=== PATIENT | male | born 1965 | race Caucasian/White ===

== ENCOUNTER 2017-03-29 15:12 | Inpatient (IN) | payer OTHER ==
[~2017-03-29] VITALS: Ht 185.4 cm; Wt 70.9 kg
[~2017-03-29 15:12] MED LIST: ALBUTEROL0.09 MG/A1 INH; CLONAZEPAM1 M2 PO; COMMIT; METHADONE10 MG/1 M2 PO; MIRTAZAPINE15 MG PO; NEURONTIN600 M1 PO; QUETIAPINE FUM300 MG PO; SEROQUEL200 M1 PO; SPIRIVA 18 MCG18 MCG INH; [UNRECOGNIZED DRUG - OTHER]
--- NOTE | 2017-03-29 15:42 | NUR ---
PT STATES JUST GOT OUT OF [facility] FOR +SI AND STATES HE FEELS WORSE. PT STATES HE DOES HAVE A PLAN TO HURT HIMSELF STATES USUALY PILLS. PT STATES HE TOOK SOME XANAX 10 12MG PILLS AND SOME SEREQUEL 10 200MG AND GABAPENTIN 8 300MG PILLS. AND HE IS STARTING TO FEEL VERY DROWSEY. PT DENIES HI AT THIS TIME. PT STATES HE TAKES METHADONE, STATES HE DOES DRINK ETOH BUT THIS IS NOT A PROBLEM FOR HIM. PT ALSO ADMITS TO USING COCAINE NOW.
--- NOTE | 2017-03-29 15:46 | NUR ---
TO ROOM 12. PT ENCOURAGED TO CHANGE. PT AWARE OF NEEDING A URINE SPEC.
[2017-03-29 15:47] LABS: ABSOLUTE BASOPHIL COUNT 0.1 /CUMM (0.0-0.2); ABSOLUTE EOSINOPHIL COUNT 0.1 /CUMM (0.0-0.7); ABSOLUTE GRANULOCYTE CT 3.4 /CUMM (1.4-6.5); ABSOLUTE LYMPH COUNT 2.5 /CUMM (1.2-3.4); ABSOLUTE MONOCYTE COUNT 0.9 /CUMM (0.10-0.60); BASOPHIL % 0.8 % (0.0-2.0); EOSINOPHIL % 1.1 % (0-5); HEMATOCRIT 40.2 % (42-52); MEAN CORPUSCULAR HGB 31.2 PG (27.0-31.0); MEAN CORPUSCULAR HGB CONC 33.3 G/DL (33.0-37.0); MEAN CORPUSCULAR VOLUME 93.6 FL (80.0-94.0); MEAN PLATELET VOLUME 7.6 FL (7.4-10.4); PLATELET COUNT 251 /CUMM (130-400); RBC DISTRIBUTION WIDTH 14.6 % (11.5-14.5); WHITE BLOOD CELL COUNT 6.9 /CUMM (4.8-10.8)
--- NOTE | 2017-03-29 15:49 | ED GENERAL ADULT ---
See Addendum History of Present Illness General Chief Complaint: Psychiatric Related Complaint Stated Complaint: POSITIVE SI Source: patient Exam Limitations: no limitations Vital Signs & Intake/Output Vital Signs & Intake/Output Vital Signs Date Time Temp Pulse Resp B/P B/P Pulse O2 O2 Flow FiO2 Mean Ox Delivery Rate 04/01 0811 97.9 72 22 102/59 96 04/01 0552 97.9 66 16 111/59 96 Room Air 04/01 0133 98.2 59 16 113/57 95 Room Air 03/31 2240 98.4 80 16 108/64 95 Room Air 03/31 1916 98.0 80 16 100/60 94 Room Air 03/31 1634 98.0 60 16 100/64 94 Room Air Allergies Coded Allergies: benztropine (Intermediate, DELUSIONS 10/19/16) escitalopram (Intermediate, DELUSIONS 10/19/16) fluoxetine (Intermediate, DELUSIONS 10/19/16) haloperidol (Intermediate, DELUSIONS 10/19/16) chlorpromazine (Severe, MAKES ME CUT MYSELF 10/19/16) Reconcile Medications Amoxicillin/Clavulanate Potass (Amox-Clav 875-125 MG Tablet) 875 MG-125 MG TABLET 1 TAB PO BID ANTIBIOTIC (Reported) Gabapentin 300 MG CAPSULE 2 CAP PO TID UNKNOWN (Reported) Lactose-Reduced Food (Ensure Liquid) 237 ML LIQUID 237 ML PO TID SUPPLEMENT ( Reported) Quetiapine Fumarate 200 MG TABLET 1 TAB PO AD MENTAL HEALTH (Reported) Tamsulosin HCl 0.4 MG CAP.ER.24H 1 CAP PO DAILY (Reported) Tiotropium [place] (Spiriva) 18 MCG CAP.W.DEV 1 CAP INH DAILY RESPIRATORY ( Reported) Triage Note: PT STATES JUST GOT OUT OF [facility] FOR +SI AND STATES HE FEELS WORSE. PT STATES HE DOES HAVE A PLAN TO HURT HIMSELF STATES USUALY PILLS. PT STATES HE TOOK SOME XANAX 10 12MG PILLS AND SOME SEREQUEL 10 200MG AND GABAPENTIN 8 300MG PILLS. AND HE IS STARTING TO FEEL VERY DROWSEY. PT DENIES HI AT THIS TIME. PT STATES HE TAKES METHADONE, STATES HE DOES DRINK ETOH BUT THIS IS NOT A PROBLEM FOR HIM. PT ALSO ADMITS TO USING COCAINE NOW. Triage Nurses Notes Reviewed? yes Onset: Abrupt Duration: week(s): Timing: recent history HPI: 03/29/17 4 PM 51-year-old male presents to the emergency department complaining of depression with suicidal ideation. The patient states that he's been depressed for some time. He's had thoughts of killing himself including jumping off a roof or taking pills. He says that approximately 1-1/2 hours prior to admission he took 6 Xanax 2 mg tablets and a handful of 200 mg Seroquel tablets and a handful of 300 mg gabapentin. He denies vomiting or ingestion of other medications. He says he does occasionally drink. He denies drugs. He is on methadone 110 mg daily. He took his dose today. He says he also has a history of hepatitis C. He also uses cocaine. He denied chest pain or difficulty breathing. (NIRU MUNSON DO) Past History Travel History Traveled to [place] past 21 day No Medical History Any Pertinent Medical History? see below for history Neurological: seizure EENT: NONE Cardiovascular: HEART PROBLEMS ?/FILEMON Respiratory: asthma Gastrointestinal: NONE Hepatic: HEPAC? 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 No (NIRU MUNSON DO) Review of Systems Review of Systems Constitutional: Denies: fever. EENTM: Reports: no symptoms. Respiratory: Denies: short of breath. Cardiovascular: Denies: chest pain. GI: Denies: abdominal pain. Genitourinary: Reports: no symptoms. Musculoskeletal: Reports: no symptoms. Skin: Reports: no symptoms. Neurological/Psychological: Reports: depressed. Hematologic/Endocrine: Reports: no symptoms. Immunologic/Allergic: Reports: no symptoms. (NIRU MUNSON DO) Physical Exam Physical Exam General Appearance: alert, awake, anxious, moderate distress Head: atraumatic, normal appearance Eyes: Bilateral: normal appearance, PERRL, EOMI. Ears, Nose, Throat: normal pharynx, normal ENT inspection Neck: normal inspection, supple, full range of motion Respiratory: normal breath sounds, chest non-tender, no respiratory distress Cardiovascular: regular rate/rhythm Peripheral Pulses: 4+ radial (R), 4+ radial (L) Gastrointestinal: soft, non-tender Back: normal range of motion Extremities: normal inspection, normal range of motion, no edema Neurologic/Psych: awake, alert, oriented x 3 Skin: intact, normal color, warm/dry Core Measures ACS in differential dx? No CVA/TIA Diagnosis: No Severe Sepsis Present: No Septic Shock Present: No (NIRU MUNSON DO) Progress Differential Diagnoses I considered the following diagnoses in my evaluation of the patient: [DRUG OVERDOSE, DEPRESSION, SUBSTANCE ABUSE] Plan of Care: Orders Procedure Date/time Status Admit to inpatient psych 04/01 1220 Active Current Medications Sig/Andrew Start time Last Medication Dose Stop Time Status Admin Clonazepam 1 MG TID 03/31 1600 UNVr 03/31 (Klonopin 1MG Tab) 04/07 1559 210 Nicotine 2 MG Q2P PRN 03/31 1000 AC 03/31 (Nicotine) 2003 Quetiapine Fumarate 200 MG TID 03/30 1600 UNVr 03/31 (Seroquel) 210 Gabapentin 600 MG Q8 03/30 1456 UNVr 04/01 (Neurontin) 0619 7:15 AM PATIENT SIGNED OUT TO ME BY DR ECHEVARRIA. PENDING CRISIS DISPO. (VIC REILLY,MARLYN) Initial ED EKG: NSR, nonspecific ST T wave chg, BORDERLINE Q-T PROLONGATION (NIRU MUNSON DO) Differential Diagnoses I considered the following diagnoses in my evaluation of the patient: Hand-Off Endorsed To: ANIKA HOWARD MD Endorsed Time: 07 Pending: consult (CANDACE REILLY,ESTELA Akbar) Hand-Off Endorsed To: NIRU MILLER MD Endorsed Time: 190 Pending: consult Comments: Patient has been seen and evaluated by sound ranging crewmember. A PEC has been signed. Bed search is underway. (ANIKA HOWARD MD) Comments: 03/31/2017 6:55:54 AM patient signed out to Dr. Howard at shift drying rack changer. (NIRU MILLER MD) Departure Departure Disposition: STILL A PATIENT Condition: Stable Clinical Impression Primary Impression: Drug overdose Referrals: PATIENT HAS NO PRIMARY CARE DR (PCP/Family) Departure Forms: Customer Survey General Discharge Information Comments The patient was placed on a monitor. Poison control consulted. IV fluids were given. Crisis consultation was requested Patient's labs were essentially unremarkable other than elevated cocaine level, elevated benzo level. He will be evaluated by crisis in the a.m. The patient was signed out to Dr. Echevarria at 1 AM (NIRU MUNSON DO) Departure Time of Disposition: 1220 Psych Admission Note Psychiatric Admission: I have seen and evaluated VIC TRAN. I have also reviewed all the pertinent lab results and diagnostic results. VIC TRAN will be admitted to our inpatient Psychiatric unit for treatment and care. (VIC REILLY,MARLYN) Critical Care Note Critical Care Note Critical Care Time: 30-74 min (NIRU MUNSON DO) Departure Forms: Customer Survey General Discharge Information Comments The patient was placed on a monitor. Poison control consulted. IV fluids were given. Crisis consultation was requested Patient's labs were essentially unremarkable other than elevated cocaine level, elevated benzo level. He will be evaluated by crisis in the a.m. The patient was signed out to Dr. Echevarria at 1 AM (NIRU MUNSON DO) Critical Care Note Critical Care Note Critical Care Time: 30-74 min (NIRU MUNSON DO)
--- NOTE | 2017-03-29 15:50 | NUR ---
DR. MUNSON AT BEDSIDE.
--- NOTE | 2017-03-29 16:25 | NUR ---
FINGERFOOD TRAY ORDERED WITH [employer].
[2017-03-29] MEDS ORDERED: SPIRIVA18 MCG INH (16:45)
[2017-03-29] MEDS ORDERED: ENSURE LIQUID237 ML PO (16:45)
[2017-03-29] MEDS ORDERED: TAMSULOSIN HCL0.4 M1 PO (16:45)
[2017-03-29] MEDS ORDERED: AMOX-CLAV 875-1 EACH PO (16:45)
[2017-03-29] MEDS ORDERED: GABAPENTIN300 M2 PO (16:46)
[2017-03-29] MEDS ORDERED: QUETIAPINE FUM200 M1 PO (16:46)
--- NOTE | 2017-03-29 16:56 | NUR ---
PT SEMI UNCOOPERATIVE, REPORTS HE IS BUSY WATCHING TV AND EATING HIS DINNER TO PROVIDE URINE. PT CONFUSING WITH SITTER. AWARE OF THE NECESSITY OF URINE.
--- NOTE | 2017-03-29 20:00 | NUR ---
PT INTERMITTANTLY SLEEPING BUT AWAKENS TO GENTLE STERNAL RUB AND/OR VOICE LOUDER THAN NORM. SITTER IN PLACE.
--- NOTE | 2017-03-29 20:14 | ED PSY CRISIS COLLATERAL NOTE ---
Collateral Note Collateral Note Family/Inform/James Contacts: Crisis consult was received, however per the notes the patient took an overdose of medications and his toxicology screen is positive for PCP, Methadone, Benzodiazepines and Cocaine. He presents as lethargic and not appropriate for interview at this time. UTE spoke to MALIA Smith and she also believes that he is not appropriate for interview this evening. SW will follow up tomorrow AM. UTE spoke to the patients sister, Joselin Blandon ([phone]), for collateral information. Joselin notes that the patient has been struggling with mental health and substance abuse issues since he was 18 years old. She states that he has had multiple treatment episodes, with the last one being at [facility], in which he was discharged 2 days ago. She states that she has been involved in multiple family sessions over the years and that he generally does well, while he is inpatient and then struggles upon discharge. She states that he has poor coping skills and can not handle stressors in his life. She notes that they did lose multiple family members in 2015, including their mother, aunt, uncle and grandmother and she does not believe, that the patient has dealt with their deaths. She believes that the patient's Methadone Maintenance is helpful and that he needs to remain on it. She states that he has been more depressed and suicidal lately. She is very concerned for his safety and does find him to be a risk to himself. She would like to be kept informed about the plan of care and will also call Crisis tomorrow to check in.
--- NOTE | 2017-03-29 23:53 | NUR ---
PATIENT CONTINUES TO SLEEP AT THIS TIME W/ REGULAR RESPIRATIONS NOTED. REMAINS IN VIEW OF RN STATION.
--- NOTE | 2017-03-30 01:45 | NUR ---
PATIENT CONTINUES TO SLEEP AT THIS TIME W/ REGULAR RESPIRATIONS NOTED. REMAINS IN SITE OF NURSES STATION.
--- NOTE | 2017-03-30 02:54 | NUR ---
PATIENT CONTINUES TO SLEEP AT THIS TIME W/ REGULAR RESPIRATIONS NOTED.
--- NOTE | 2017-03-30 04:02 | NUR ---
PATIENT TURNING/ REPOSITIONING SELF ON STRETCHER AT THIS TIME, PATIENT REMAINS W/ REGULAR RESPIRATIONS.
--- NOTE | 2017-03-30 06:31 | NUR ---
PATIENT CONTINUES TO SLEEP AT THIS TIME W/ REGULAR RESPIRATIONS NOTED. REMAINS IN LINE OF SITE OF NURSES STATION. POISION CONTROL UPDATED ON PATIENT CONDITION.
--- NOTE | 2017-03-30 07:30 | NUR ---
PATIENT SLEEPING AT THIS TIME. EVEN, NONLABORED RESP RATE NOTED. WILL CONTINUE TO MONITOR.
--- NOTE | 2017-03-30 08:18 | NUR ---
CRISIS AT BEDSIDE FOR EVAL.
--- NOTE | 2017-03-30 08:59 | ED PSYCH CRISIS CONSULTATION ---
See Addendum Crisis Consult Basic Assessment Date of Consult: 03/30/17 Responsible Person/Accompanied By: self Insurance Authorization: Insurance #1: Insurance name: VIVIAN KELLY Phone number: Policy number: [id number] Group number: Authorization number: ED Provider: Patient's ED Provider: NIRU MUNSON DO Primary Care Physician: Patient's PCP: PATIENT HAS NO PRIMARY CARE DR PCP's Phone Number: Current Psychiatrist: [facility] Chief Complaint: Psychiatric Related Complaint Patient's Quote: "I've been in a coma so many times butmy suicide attempts don't work." Present Illness: Pt. was interviewed in the morning by extract wringer after spending the night in the ED after taking "5-6 2 mg Klonopin, no Xanax and 'some seroquel'" in a suicide attempt. Pt. was extremely irritable and barely coherent, speaking to clinician from under a blanket at first but removing the blanket when asked to do so. Pt. stated that "it was obvious" that he was here for suicidal ideation and that he had "been feeling depressed and suicidal for weeks". When asked about his recent discharge from the hospital referenced in the collateral note, he acknowledged that he had been in the hospital but could not say which one "[facility] or [facility] or something" and he reported he "thought he felt better" but that he became depressed as soon as he was released. He stated that he was advised to come to the hospital by "[facility]" where he said he went for weekly therapy and case management with a licensed clinical social worker. Pt. reported a long history of mental health issues since 1988 and multiple hospitalizations including [facility], [facility] and [facility]. Pt. reported currently being "in treatment" at [facility] and the [facility] for methadone maintenance ( 110 mg). He was not able to elaborate on where he was living or family supports. He acknowledged that he was actively substance using but when asked what he "used" he reported the pills he took for overdose, and when this clinician asked him if he had used the Klonopin to get high, he replied in disgust that it was a suicide attempt and that "you can't get high on seroquel". Client was disorganized and irritable. Patient's Address: [address] [place] [id number] Other Phone Number: Who Do You Live With? Patient/Self Family/Informants Interviewed: See collateral note Allergies - Coded Allergies: benztropine (Intermediate, DELUSIONS 10/19/16) escitalopram (Intermediate, DELUSIONS 10/19/16) fluoxetine (Intermediate, DELUSIONS 10/19/16) haloperidol (Intermediate, DELUSIONS 10/19/16) chlorpromazine (Severe, MAKES ME CUT MYSELF 10/19/16) Current Medications - Scheduled Medications Amoxicillin/Clavulanate Potass (Amox-Clav 875-125 MG Tablet) 875 MG-125 MG TABLET 1 TAB PO BID ANTIBIOTIC #20 (Reported) Entered as Reported by PREETI SEGURA on 03/29/17 164 Gabapentin 300 MG CAPSULE 2 CAP PO TID UNKNOWN #180 (Reported) Entered as Reported by PREETI SEGURA on 03/29/171645 Lactose-Reduced Food (Ensure Liquid) 237 ML LIQUID 237 ML PO TID SUPPLEMENT # 22891 (Reported) Entered as Reported by PREETI SEGURA on 03/29/17 164 Quetiapine Fumarate 200 MG TABLET 1 TAB PO AD MENTAL HEALTH #120 (Reported) Entered as Reported by PREETI SEGURA on 03/29/17 164 Tamsulosin HCl 0.4 MG CAP.ER.24H 1 CAP PO DAILY #30 (Reported) Entered as Reported by PREETI SEGURA on 03/29/17 164 Tiotropium [place] (Spiriva) 18 MCG CAP.W.DEV 1 CAP INH DAILY RESPIRATORY #30 (Reported) Entered as Reported by PREETI SEGURA on 03/29/17 1645 Laboratory Results: Laboratory Tests 03/29/17 1715: Urine Opiates Screen < 100.00, Methadone Screen > 735 H, Barbiturate Screen < 60, Ur Phencyclidine Scrn > 72.00 H, Amphetamines Screen 112, U Benzodiazepines Scrn > 800 H, Urine Cocaine Screen > 1000 H, Urine Cannabis Screen < 5.00 03/29/17 1556: Salicylates Cancelled 03/29/17 1533: Anion Gap 10, Estimated GFR > 60, BUN/Creatinine Ratio 24.0, Glucose 103 H, Calcium 9.1, Total Bilirubin 0.9, AST 39, ALT 56, Alkaline Phosphatase 63, Total Protein 7.3, Albumin 4.3, Globulin 3.0, Albumin/Globulin Ratio 1.4, CBC w Diff NO MAN DIFF REQ, RBC 4.30 L, MCV 93.6, MCH 31.2 H, RDW 14.6 H, MPV 7.6, Gran % 49.0, Lymphocytes % 36.3, Monocytes % 12.8 H, Eosinophils % 1.1, Basophils % 0.8, Absolute Granulocytes 3.4, Absolute Lymphocytes 2.5, Absolute Monocytes 0.9 H, Absolute Eosinophils 0.1, Absolute Basophils 0.1, PUBS MCHC 33.3, Salicylates < 1.0, Acetaminophen < 10.0 L, Serum Alcohol < 10.0 Past History Past Medical History Neurological: seizure EENT: NONE Cardiovascular: HEART PROBLEMS ?/FILEMON Respiratory: asthma Gastrointestinal: NONE Hepatic: HEPAC? 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 Physical Limitations (Interventions): None noted Psychiatric Treatment History Psych Treatment Psychiatric Treatment Yes Inpatient Treatment Yes [facility] Reason for Treatment mental health and substance abuse Dates of Treatment "since 1988" Diagnosis by History: "Bipolar Manic" Substance Use/Abuse History Drug Use/Abuse Substances Used/Abused Yes Substance Used/Abused Benzodiazepines First Use unknown Last Used yesterday How much used/taken 5-6 klonpin 2 mg How often unknown For how long unknown Substance Abuse Treatment Substance Abuse Treatment Past Substance Abuse TX Yes Inpatient Treatment Yes Outpatient Treatment Yes Location of Treatment unknown Reason for Treatment heavy substance abuse Dates of Treatment unknown Current Mental Status Mental Status Orientation: Confused, Person, Place Affect: Angry, Depressed, Flat Speech: Mumbled, Slurred, Soft Neuro-vegetative: Anhedonia, Concentration Poor, Loss of Interest Appearance Appearance- Dress/Hygiene: very thin and gaunt, in hospital gown, covered from head to foot in blanket, removed blanket from face in order to speak with SW Behaviors Thought Process: Disorganized Memory: WNL Insight: Poor SI/HI Risk Assessment Past Suicidal Ideation/Attempts Yes Current Suicidal Ideation/Att Yes Past Homicidal Ideation/Att: No Current Homicidal Ideation/Attempts No Degree of Intent: Self Destructive/No , States Intent Danger To: Self Gravely Disabled: Lack of Insight, Poor Impulse Control, Poor Judgment Risk Factors: access to lethal means, chronic/serious med cond., high anxiety/ distress, history of suicide atmpts, SA/MH hospitalized, substance abuse, isolate/no social support, poor impulse control, lack of outcome concern, male, limited support Lethality Ratin PTSD Checklist PTSD Done? pt unable to participate ED Management Sitter: Yes Restraints: No DSM5/PS Stressors/Medical Prob Diagnosis' (DSM 5, Stressors, Medical): F31.4 Bipolar Disorder most recent episode depressed Current GAF: 25 Departure Disposition Psych Medical Clearance Date: 03/30/17 Medically Cleared at: 824 Time Started: 824 Time Ended: 844 Psychiatrist Consulted: Jose Enriquez MD Date Disposition Established: 03/30/17 Time Disposition Established: 899 Plan for Disposition - Modality: Inpatient Psychiatry Facility: bed search Rationale for Disposition: pt. is actively suicidal, with attempt yesterday Type of IP Admission: Voluntary Additional Instructions: PEC if transferring to another hospital Referrals PATIENT HAS NO PRIMARY CARE DR (PCP/Family)
--- NOTE | 2017-03-30 09:23 | NUR ---
DARREN RESTING ON STRETCHER IN HALLWAY.
--- NOTE | 2017-03-30 10:28 | NUR ---
SPOKE WITH POISON CONTROL AT THIS TIME - SYMPTOMS HAVE RESOLVED. ALL MEDICATIONS HAVE PEAKED AT THIS TIME (EVEN IF ANY OF THE MEDICATIONS HAVE BEEN EXTENDED RELEASE). * CIPRIANO FROM POISON CONTROL.
--- NOTE | 2017-03-30 11:09 | NUR ---
ASSUMED CARE OF PT
--- NOTE | 2017-03-30 11:20 | NUR ---
PT SEEN IN ROOM. EATING LUNCH. DENIES ANY CURRENT DISTRESS
--- NOTE | 2017-03-30 17:33 | NUR ---
PT RESTING COMFORTABLY
--- NOTE | 2017-03-30 20:54 | NUR ---
Crisis Clinicial assess pt at 20:00. Pt continues to endorse suicidal thoughts with plan. Pt states "I'm getting worst, feeling more depressed". Pt requesting medications Seroquel, Neurotin and Nicotin gum. Disposition plan discussed with pt. Informed that his referral was denied at the following hospitals, [facility], [facility], [facility] and [facility]. At this time pt is requesting to be hospitalized at [facility] and he is willing to wait until Saturday.
--- NOTE | 2017-03-31 | NUR ---
SLEEPING AT THIS TIEM SITTERA AT DOOR.
--- NOTE | 2017-03-31 07:09 | NUR ---
ASSUMED CARE OF PT AT THIS TIME MEDICATED WITH NEUROTIN PER ORDER AT THIS TIME PT RESTING ON STRETCHER, SITTER REMAINS PRESENT.
--- NOTE | 2017-03-31 07:16 | NUR ---
PT GIVEN NICOTINE GUM AT THIS TIME PER PRN ORDER
--- NOTE | 2017-03-31 08:27 | NUR ---
REQUESTING METHADONE AND MORE NICOTENE GUM.
--- NOTE | 2017-03-31 08:54 | NUR ---
PT MEDICATED WITH METHADONE PER ORDER AT THIS TIME
--- NOTE | 2017-03-31 10:06 | NUR ---
Pt reassessed by crisis . Pt reports mild decrease in SI but affirms that he needs inpatient treatment. he presents as irritable and restless. requesting nicotine gum order to be increased to every 2 hrs. Reviewed with pt that crisis continues to search for in inpatient psychiatric bed. Pt referral has been faxed this morning to [facility] and [facility].
--- NOTE | 2017-03-31 10:52 | NUR ---
PT TALKING ON PHONE AT THIS TIME SITTER REMAINS PRESENT
--- NOTE | 2017-03-31 11:20 | NUR ---
ASSUMED CARE OF THIS PT FROM MALIA PEREZ. PT REQUESTING TO RETREIVE NUMBERS OFF HIS CELL PHONE WHICH IS IN ER SAFE. THIS RN OBTAINED VALUABLES BAG, PROVIDED CELL PHONE AND PAPER/PEN TO PT AND RESEALED VALUABLES BAG AND RETURNED TO SAFE. SITTER AT DOOR. PT CALM AND COOPERATIVE.
--- NOTE | 2017-03-31 12:59 | NUR ---
PT REQUESTING NICOTINE GUM
--- NOTE | 2017-03-31 13:06 | NUR ---
PT PROVIDED WITH NICOTINE GUM 2MG. PT CALM AND COOPERATIVE, TALKATIVE. SITTER AT DOOR.
--- NOTE | 2017-03-31 14:50 | NUR ---
PT MEDICATED WITH GABAPENTIN 600MG PO AND NICOTINE GUM 2MG PO PT ASKING WHEN HE WOULD GET KLONOPIN. THIS RN ADVISED HIM THAT IT IS ORDERED FOR 4PM. PT CALM AND COOPERATIVE. SITTER AT DOOR.
--- NOTE | 2017-03-31 15:26 | ED PSYCHIATRIST/APRN CONSULT ---
Psychiatrist/[employer] TECHNOLOGY DEVELOPMENT MANAGER ED Consult Assessment and Plan: 51-year-old single White male who presented to ED the evening of 03/29/2017 for overdose on Klonopin, Xanax, and Seroquel. He reported that it was an attempt at suicide and that he has been having thoughts of suicide "for weeks." He was inpatient psych at [facility] in October 2016. History of inpatient psych treatments at [place], [facility], [facility] , and [facility] History of being diagnosed with Bipolar, Opiate use d/o on methadone. Cocaine use d/o. PTSD, unspecified. Alcohol Use Disorder Sedative Hypnotic Use Disorder History of withdrawal seizures Nicotine Use Disorder Over 30 suicide attempts (by his report) Medications: Discharged from [facility] on the following Medications: Methadone 80mg, take po every morning for opiate maintenance. Cymbalta 30mg caps, take 1 cap po every morning . Seroquel 200mg tabs, take 1 tab po at 8AM and at 2PM Seroquel 400mg tabs, take 1 tab po at bedtime Remeron 15mg tabs, take 1 tab po at bedtime Gabapentin 300mg caps, take 2 cap po three times a day. Spiriva inhaler 18mcg, take 1 puff inhalation every day for COPD. Flomax 0.4mg caps, take 1 tab po every morning for BPH/prostate. Daily Multivitamin, take 1 tab po every morning. Mental State: Interviewed in room 13 /Crisis Area Irritable, angry about the wait for a bed, angry TV is not working in his room Bored, restless, and agitated. In agreement with inpatient psych admission Increased psychomotor activity, talkative No delusions, no thought disorder Depressed, hopeless and thinking of suicide Thinking of punching wall, the patient in the next room is aggravating him, he denied plans to assault anyone Assessment: An angry 51-year-old White male awaiting a bed in an inpatient psych unit due to a reported suicide attempt by overdose and ongoing thoughts of suicide, agitation, and anger. Extensive psych history with--reportedly--over 30 suicide attempts. Extensive substance abuse history. Recommendations: Resume medications above Add Klonopin 1 mg every 6 hours as needed for anxiety, agitation, withdrawal Continue bed search for inpatient psych
--- NOTE | 2017-03-31 15:26 | NUR ---
PT MEDICATED WITH KLONOPIN 1MG AND SEROQUEL 200MG PO PER EMAR. PT CALM AND COOPERATIVE SITTING ON BED IN ROOM 13. SITTER AT DOOR.
--- NOTE | 2017-03-31 16:38 | NUR ---
PT LYING ON BED IN ROOM 13 CALM AND COOPERATIVE. PT REQUESTING NICOTINE GUM. PT AMBULATORY TO RESTROOM WITH STEADY GAIT.
--- NOTE | 2017-03-31 16:48 | NUR ---
PT GIVEN NICOTINE GUM 2MG. PT REMAINS CALM AND COOPERATIVE. SITTER AT DOOR.
--- NOTE | 2017-03-31 18:06 | NUR ---
PT RESTING ON BED IN ROOM 13. PT CALM AND COOPERATIVE. SITTER AT DOOR.
--- NOTE | 2017-03-31 19:10 | NUR ---
CRISIS AT BEDSIDE. PT STATES HE WANTS TO GO HOME IN THE MORNING. PT STSTES HE IS NO LONGER SUICIDAL. PT REPORTING ANXIETY DUE TO NO TELEVISION. PT REQUESTING MORE NICOTINE GUM AND ASKING ABOUT KLONOPIN.
--- NOTE | 2017-03-31 21:06 | NUR ---
PT MEDICATED WITH SEROQUEL 200MG, KLONOPIN 1MG AND PROVIDED WITH NICOTINE GUM 2MG. PT ANXIOUS DUE TO NO TV FOR DISTRACTION. SITTER AT DOOR.
--- NOTE | 2017-03-31 22:43 | NUR ---
PT ASLEEP IN ROOM 13 WITH EQUAL AND UNLABORED RESPIRATIONS. SITTER AT DOOR.
--- NOTE | 2017-04-01 01:22 | NUR ---
PT ASLEEP NO DISTRESS, SITTER IN PLACE.
--- NOTE | 2017-04-01 03:51 | NUR ---
CONT TO SLEEP NO DISTRESS.
--- NOTE | 2017-04-01 05:54 | NUR ---
PTS VITAL SIGNS STABLE, PT PROVIDED WITH A CUP OF WATER. PT INFORMED BREAKFAST WILL ARRIVE SHORTLY. SITTER IN PLACE FOR SAFETY.
--- NOTE | 2017-04-01 06:20 | NUR ---
MED WITH 0600 NEURONTIN, PT REQUESTS ABOUT "500" PACKAGES OF LENARD CRACKERS, PT AWARE BREAKFAST IS COMING SHORTLY. GIVEN 3 PACKAGES AND WILL GIVE BREAKFAST ON IT ARRIVAL.
--- NOTE | 2017-04-01 07:27 | NUR ---
RECEIVED REPORT, ASSUMED CARE OF PT. PT SLEEPING AT THIS TIME, REG RR NOTED, SITTER AT DOORWAY.
--- NOTE | 2017-04-01 08:20 | NUR ---
PT GIVEN NICOTINE GUM
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
--- NOTE | 2017-04-01 14:42 | NUR ---
ANDREW RN TO CALL BACK FOR REPORT
--- NOTE | 2017-04-01 16:25 | NUR ---
REPORT GIVEN TO MALIA ENGEL
[2017-04-01 17:30] VITALS: BP 102/68
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
[2017-04-01 20:08] VITALS: BP 105/65
--- NOTE | 2017-04-01 20:19 | NUR ---
[facility]. HE HAS BEEN PLEASANT AND HAS BEEN COMPLIANT. PT HAS GONE TO BED EARLY AND REPORTED TO STAFF THAT HE WAS GOING TO TAKE IT EASY BY DOODLING, COLORING AND READING. HE ALSO EXPRESSED TO STAFF PASSIVE THOUGHTS OF SI BUT DID NOT HAVE ANY PLANS TO ACT AND WILL INFORM STAFF IF ANYTHING CHANGES OR SYMPTOMS WORSEN.
[2017-04-01 20:25] VITALS: BP 105/65
--- NOTE | 2017-04-02 05:44 | NUR ---
51 YEAR OLD WITH A LONG HISTORY OF SUBSTANCE ABUSE, MENTAL ILLNESS AND INCARCERATION. PT ON METHADONE MAINTENANCE. PT TALKATIVE AND PRESSURED AT POINTS. PT SLEPT.
[2017-04-02 07:47] VITALS: BP 133/67
[2017-04-02 07:52] VITALS: BP 133/67
[2017-04-02 12:32] VITALS: BP 114/74
--- NOTE | 2017-04-02 13:31 | SOCIAL WORKER PROG NOTE PSYCH ---
Social Work Progress Note Progress Note Patient is a 51 year old male who was referred to [facility] E.[facility] by Angelina, his therapist at [facility] ([phone]). Patient lives in own apartment in [place], and gets treatment at [facility] and at [facility] in [place], and gets 110 m.g. Methadone per day. Patient was expressing suicidal ideation, and was admitted through E.D. Patient was seen with Dariana, and patient was pretty forthcoming. He stated that he has nothing in his life to look forward to for his day, and would just as soon not be around, so expressing some passive suicidal ideation. Patient stated that he was fine with us contacting his treaters, but he did not want us to contact his sister who is his closest relative. Patient did state that if he were in trouble he would definitely go to his sister for help. Patient is hopeful that he will not be in hospital for a long period of time. He feels that he can get his therapeutic help from his treaters, but he could benefit from more to do throughout the day. Patient is clean, and relapsed, and now wants to begin a new clean period.
--- NOTE | 2017-04-02 13:43 | NUR ---
PT HAS BEEN SEEN IN THE [facility] TODAY. PT WENT TO A FEW GROUPS TODAY, AND HAS BEEN INTERACTING WITH PEERS. PT HAS BEEN COOPERATIVE WITH STAFF DIRECTION, AND FOLLOWING THE RULES OF THE UNIT. PT DENIES THOUGHTS OF HURTING HIMSELF WHEN ASKED.
[2017-04-02 16:16] VITALS: BP 113/71
--- NOTE | 2017-04-02 16:29 | SOCIAL WORKER TX PLAN PSYCH ---
Treatment Plan - Please Document: - Evidence that there is ongoing collaboration between - the patient and the interdisciplinary team, - including the patient's active participation and - responsibility for engaging in the treatment regimen, - and that the treatment plan is individualized and - relevant to the patient's conditions. - Treatment plan should reflect documentation indicating - that all active therapeutic efforts are included. Strengths/Capabilities: The patient does have insight into his need for treatment, but does not have insight into his disease of bipolar, as evidenced by his coming off medication recently. Physical Limitations (Interventions): None noted Problem/Goals #1 Problem #1: suicidal ideation Goal (Short Term): Patient will report feeling safe on unit with no suicidal ideation Goal (Calculator Operator): Patient will follow-up with treaters at [facility] in [place], as well as with [facility] on [address] Interventions: Group and individual therapy Modalities: one on one sessions with neonatal social worker meeting with psychiatrist and having medication evaluation; and making commitment to take medicine as prescribed DSM5/PS Stressors/Medical Prob Diagnosis' (DSM 5, Stressors, Medical): F31.4 Bipolar Disorder most recent episode depressed Current GAF: 21 Treatment Team - Responsibilities of members of the treatment team include: - Medication Management- MD or CLOTH DESIZING RANGE OPERATOR CHIEF - Medication Administration and Monitoring- Nurse - Group Therapy- Occupational Therapist - 1:1 Therapy,Disch Planning,family involvement-Truck Driver Heavy
--- NOTE | 2017-04-02 18:55 | NUR ---
PT IS COOPERATIVE WITH STAFF AND PEERS, AND COMPLIANT WITH UNIT RULES. SLIGHTLY AGITATED AT TIMES, BUT EASILY RE-DIRECTED WHEN THIS OCCURS. SPENDS LONG PERIODS IN PT ROOM ISLOLATING. MOOD IS STABLE, AFFECT IS EUTHYMIC TO FULL RANGE, COMMUNICATION IS ORGANIZED AND APPEARS NORMAL IN ALL RESPECT, AND APPETITE IS NORMAL. PT DENIES SI AT THIS TIME.
[2017-04-02 19:52] VITALS: BP 90/63
--- NOTE | 2017-04-02 20:46 | History & Physical ---
General Information and HPI MD Statement: I have seen and personally examined VIC TRAN and documented this H&P. The patient is a 51 year old M who presented with a patient stated chief complaint of [" I feel depressed and suicidal for weeks]. Source of Information: patient, old records Exam Limitations: no limitations History of Present Illness: 51-year-old white male just got out of some [facility] hospital for suicidal ideations at first thought he was feeling better feeling worse and has plan to hurt himself with pills tokes 10 Xanax 10 Seroquel 7H gabapentin's. At first was drowsy now is alert minutes for evaluation and adjustment of his medications Allergies/Medications Allergies: Coded Allergies: benztropine (Intermediate, DELUSIONS 10/19/16) escitalopram (Intermediate, DELUSIONS 10/19/16) fluoxetine (Intermediate, DELUSIONS 10/19/16) haloperidol (Intermediate, DELUSIONS 10/19/16) chlorpromazine (Severe, MAKES ME CUT MYSELF 10/19/16) Home Med list Tamsulosin HCl 0.4 MG CAP.ER.24H 1 CAP PO DAILY (Reported) Tiotropium [place] (Spiriva) 18 MCG CAP.W.DEV 1 CAP INH DAILY RESPIRATORY ( Reported) Compliance With Home Meds: UNKNOWN Past History Travel History Traveled to [place] past 21 day No Medical History Neurological: seizure in the setting of ETOH W/D; last 4 yrs ago EENT: NONE Cardiovascular: HEART PROBLEMS ?/FILEMON Respiratory: asthma Gastrointestinal: NONE Hepatic: hepatitis C Renal: benign prost hyperplasia Musculoskeletal: NONE Psychiatric: anxiety, bipolar disease, depression, psychosis, substance abuse Endocrine: NONE Blood Disorders: NONE Cancer(s): NONE 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 Exam & Diagnostic Data Last 24 Hrs of Vital Signs/I&O Vital Signs Date Time Temp Pulse Resp B/P B/P Pulse O2 O2 Flow FiO2 Mean Ox Delivery Rate 04/02 1952 97.6 90 90/63 04/02 1616 81 113/71 04/02 1232 84 114/74 04/02 1232 84 114/74 04/02 0920 85 133/67 04/02 0752 97.1 85 04/02 0747 97.1 85 Intake & Output 04/02 1600 04/02 0800 04/02 0000 Intake Total Output Total Balance Patient 156 lb Weight Physical Exam General Appearance Alert, Oriented X3 Skin No Rashes, No Breakdown HEENT PERRLA, EOMI Neck Supple, No JVD Lymphatic Axillary nl, Cervical nl Cardiovascular Regular Rate Lungs Clear to Auscultation Abdomen Soft, No Tenderness Neurological Exam Findings: Normal Gait, Normal Speech, Strength at 5/5 X4 Ext, Normal Tone, Sensation Intact, Cranial Nerves 3-12 NL, Reflexes 2+ Cranial Nerves II through XII: Intact Extremities No Edema, Normal Pulses Vascular Normal Pulses, Pulses Symmetrical Last 24 Hrs of Labs/[place]: 03/29/17 1715: Urine Opiates Screen < 100.00, Methadone Screen > 735 H, Barbiturate Screen < 60, Ur Phencyclidine Scrn > 72.00 H, Amphetamines Screen 112, U Benzodiazepines Scrn > 800 H, Urine Cocaine Screen > 1000 H, Urine Cannabis Screen < 5.00 03/29/17 1556: Salicylates Cancelled 03/29/17 1533: Anion Gap 10, Estimated GFR > 60, BUN/Creatinine Ratio 24.0, Glucose 103 H, Calcium 9.1, Total Bilirubin 0.9, AST 39, ALT 56, Alkaline Phosphatase 63, Total Protein 7.3, Albumin 4.3, Globulin 3.0, Albumin/Globulin Ratio 1.4, CBC w Diff NO MAN DIFF REQ, RBC 4.30 L, MCV 93.6, MCH 31.2 H, RDW 14.6 H, MPV 7.6, Gran % 49.0, Lymphocytes % 36.3, Monocytes % 12.8 H, Eosinophils % 1.1, Basophils % 0.8, Absolute Granulocytes 3.4, Absolute Lymphocytes 2.5, Absolute Monocytes 0.9 H, Absolute Eosinophils 0.1, Absolute Basophils 0.1, PUBS MCHC 33.3, Salicylates < 1.0, Acetaminophen < 10.0 L, Serum Alcohol < 10.0 Diagnostic Data ITS Data Unobtainable at this time Assessment/Plan As Ranked By This Provider Problem List: 1. Drug overdose 2. Polysubstance (excluding opioids) dependence 3. Depression 4. Suicidal behavior Miscellaneous Miscellaneous Documentation Attending Case Discussed With: PAULY REILLY,ADONIS Key Primary Care Physician: PATIENT HAS NO PRIMARY CARE DR Patient sees these Specialists Psychiatry Level of Patient Care: PRICILLA [place] Consults Needed: Consulting Specialty: Psychiatry Consulting Physician: Adonis Dominguez MD Reason for Consult: suicidal ideations depression
[2017-04-03] VITALS (9 sets, daily range): BP systolic 90–104; BP diastolic 62–66
--- NOTE | 2017-04-03 06:49 | CPS MD/APRN INITIAL ASSE PSYCH ---
Psychiatric Admission Stunt Double's Note Reviewed: Yes Patient Seen and Examined: Yes (interviewed on 04/02/2017) Identifying Information: This is the 3rd [facility] admission since 11/2015 for a 51-year-old childless man currently living in his own apartment in [place], [place]., and unemployed/on Disability. Chief Complaint: "I've been in a coma so many times, but my suicide attempts don't work." Reaction to Hospitalization: seeking admission "for a rest" History of Present Illness Onset of Illness: Patient came self-referred to the E.D. having "just gotten out of [facility] for suicidal ideation but feel worse," and having taken an overdose of #10 2mg Xanax , #10 200mg Seroquel and #8 300mg Neurontin and was starting to feel very drowsy. He also acknowledged using PCP (without Marijuana), cocaine and alcohol and being on methadone maintenance; his uring tox. screen in E.D. showed intoxication with cocaine, benzodiazepines AND PCP, in addition to methadone. The following morning while still in the E.D., he changed the details of his overdose to Seroquel and Klonopin, but not Xanax or Neurontin. Once he was less sedated, patient became more dysphoric and irritable, acting as if he were a long experienced "expert" in the area of drugs and overdosing. Circumstances Leading to Admission: Patient stated that he was referred to [facility] by his therapist at [facility] in [place] for suicidality, was admitted but then "felt suicidal again" within the day following discharge. Problem(s) Justifying Need for Admission: recent large overdose with persistent suicidality Other HPI: Patient had been most recently treated on [facility], 10/22-10/29/2016 (see all admission/initial assessments, daily M.D./RAG SORTER AND CUTTER and INTERNAL COMMUNICATIONS SPECIALIST progress notes and discharge summary in the electronic medical record for details), with similar presentation to overdose on his medications in the context of a crack cocaine "crash." Suicidality resolved, patient was stabilized on his psychotropic medications, reported resolution of auditory hallucinations and was to return to his methadone maintenance with [facility] in [place] and was scheduled to have visiting nurse services from [facility]. Past Psychiatric History Past Diagnosis(es)- if any: most recent discharge diagnoses from [facility] (on 10/29/2016) were: Bipolar Disorder; MRE Depressed, severe Cocaine Use Disorder, severe Opioid Use Disorder; in remission on methadone maintenance chronic pain syndrome Past Precipitating Factors- if any: --readmissions often associated with, if not precipitated by, crack cocaine abuse/intoxication --lack of social supports or failure to utilize the supports he has --failure to reach out to his outpatient treaters promptly when not doing well --deaths of close family members or friends - Include inpatient and outpatient treatment Treatment History: Patient has a history of psychiatric treatment and admissions to hospital dating back to at least 1988, most of the latter for suicidality precipitated by noncompliance with or consistently and correctly take his psychotropic medications with substitution of various illicit/addictive substances and severe abuse of same, resulting in acute suicidality and overdoses (on the meds he had built up a supply of as a result of not taking them). At the time of initial [facility] admission, 11/30/2015 patient was still depressed related to the deaths of his mother, grandmother and uncle within a one month period in 01/2015. Patient had had previous treatment at [facility] and the [facility] and been previously diagnosed, by his own account, as "bipolar manic." The addition to PCP to his list of abused drugs ( including crack) has been ominous. History of Suicide Attempts or Gestures multiple polysubstance overdoses, often on a combination of prescribed and abused substances; prior to his first 2016 admission to [facility] had "almost jumped out a window...it's the best way to kill oneself..." Substance Abuse History: extensive past abuse of heroin (both inhaled and I.V.) but this has been generally in remission while on methadone maintenance though abuse of crack cocaine, PCP and other substances has continued and possibly intensified recently. Allergies: Coded Allergies: benztropine (Intermediate, DELUSIONS 10/19/16) escitalopram (Intermediate, DELUSIONS 10/19/16) fluoxetine (Intermediate, DELUSIONS 10/19/16) haloperidol (Intermediate, DELUSIONS 10/19/16) chlorpromazine (Severe, MAKES ME CUT MYSELF 10/19/16) Home Med List: list of medications on most recent [facility] discharge on 10/29/2016: methadone, 80mg daily Seroquel, 800mg/day Cymbalta, 30mg daily Remeron, 15mg HS Neurontin, 600mg 3x/day and: Spiriva inhaler, 18mcg: i puff daily Flomax, 0.4mg daily in AM nicotine gum, 2mg PRN - Include any medical condition(s) that may - impact the patient's recovery/remission Past History Medical History Neurological: NONE, seizure in the setting of ETOH W/D; last 4 yrs ago EENT: NONE Cardiovascular: NONE, HEART PROBLEMS ?/FILEMON Respiratory: asthma, COPD, Nicotine Use Disorder Gastrointestinal: NONE Hepatic: hepatitis C Renal: benign prost hyperplasia Musculoskeletal: NONE Psychiatric: anxiety, bipolar disease (R/O bipolar spectrum disorder), depression, psychosis, schizo affective disorder, substance abuse Endocrine: NONE Blood Disorders: NONE Cancer(s): NONE 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 friends and a sponsor Education: 11th grade with GED completion Vocation/Occupation: disabled; most recently worked in [employer] from 2007 to 2011 and reported enjoying that work Legal: several arrests for B&E, larceny, some felonies and various drug-lated charges up until 2007; claimed to have been arrested "30 times;" has spent a total of 19 years in [facility] as an adult Healthly Behaviors Screening Tobacco Screening Tobacco Use from ED Docu: Current Daily Use Daily Tobacco Use Amount/Type: => 5 Cigarettes daily - If tobacco counseling indicated - the following topics are required. - #1 Recognizing dangerous situations. - #2 Coping Skills. - #3 Basic information about quitting. Status of Tobacco Cessation Counseling: #1, #2 AND #3 Completed Cessation Med Status Nicotine Gum Ordered Alcohol Screening - ETOH screen POS if BAL >=80 or Audit-C>= M4/F3 Audit-C Score from Diag Assess: 0 Blood Alcohol Level: INDRA = less than 10.0 Alcohol Use Screening Results: Pos per Audit C &/or BAL (drank before 10/2016 admission) - If ETOH counseling indicated - the following topics are required. - #1 Express concern about the patient's - drinking at unhealthy levels, include informing - of national norms for moderate drinking: - men <= 14 drinks/week, max 4 drinks/occasion - women <= 7 drinks/week, max 3 drinks/occasion - #2 Providing feedback, including linking alcohol to - negative physical effects (liver injury, hypertension) - negative emotional effects (relationship problems and - depression) - negative occupational consequences (reduced work - performance) - #3 Advising the patient to abstain from alcohol or - to drink below national norms for moderate drinking - (as listed above). Status of ETOH Use Counseling: #1, #2 AND #3 Completed. Metabolic Screening - Screen if on a Neuroleptic Medication - Metabolic screening should include: - Blood Pressure, BMI, Glucose or Hgb A1c, & a - Lipid profile from within the past 365 days. Metabolic Screening () Not Applicable, patient not on a neuroleptic. OR ([x]) Patient on a neuroleptic(s) . Enter below results for Glucose or Hemoglobin A1C, and lipid panel if obtained during the last 365 days. BMI: 20.600 Blood Pressure: 102/57 Laboratory Results (If applicable): [x] glucose = 103 (on 03/29/2017) glycos hgb A1c = 5.7% (on 10/23/2016) cholesterol = 122 (all drawn on 10/23/2016) triglycerides = 142 HDL = 35 LDL = 59 Exam and Plan Mental Status Examination Ambulation Status: without assistance (had been utilizing a walker at the time of 10/2016 [facility] admission) Appearance: tall, very thin, looking much older than chronological age Attitude towards examiner: positive, friendly, outgoing Psychomotor activity: slightly increased, a little fidgety Behavior: surprizingly upbeat for someone who had so recently overdosed Quality of speech: somewhat pressured and at times difficult to break in to ask a question, but not loud Affect: somewhat brighter than one might expect of someone who had so recently taken an overdose Mood: labile, perhaps slightly irritable but generally upbeat Suicidal Ideation: denied at this time but readily acknowledged recent suicidality and 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 ; able/willing to provide a safety pledge/promise for here in hospital Homicidal Ideation: denied Hallucinations: denied in the present but acknowledged in the past Paranoid/Delusional Material: no evidence of frankly paranoid or delusional expressed thought Difficulties with thought organization: mildly pressured and disorganized but could give a coherent description of events with some tangentiality Insight: very limited Judgment: recently poor; questionable at this time Orientation: full Cognition: no evidence of gross global or specific deficits Memory Function: generally intact though somewhat scattered in recounting events Estimate of intellectual functioning: average Assets/Strengths Patient Identified Assets/Strengths: --able to get by, a survivor, has and still could live on the street --not drinking alcohol at this time and still trying to control substance abuse generally --attends N.A. (though admits not nearly enough AND needs a sponsor) --despite difficult life, labile moods and many past attempts, has not committed suicide "yet" Impression/Plan Impression and Plan: Patient's current presentation appears to follow an increasingly frequent pattern of relapse to escalating substance abuse and eventual suicidal ideation/ behavior with history of numerous overdose attempts. He is already speaking of wanting to discharge soon, so consideration of adding a primary mood stabilizer to maintenance Seroquel therapy will be deferred to some future presentation. Patient needs to strengthen his association with local N.A. both to assist him with achieving and maintaining abstinence and to help with establishing a sober network of friends. - Include all active medical diagnosis that require tx DSM 5 Diagnosis(es): --Schizoaffective Disorder, Mixed; MRE Mixed with mild hypomanic surge vs. 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 heroin); currently in remission on methadone maintenance - Initial Tx Plan for Active Psych & Medical Conditions Treatment Plan: --we will stabilize patient back on his regular neuroleptic medication (but give 600mg of Seroquel, rather than 800mg/day to start; higher dose may be sedating patient and inadvertently stimulating cravings for a stimulating drug (crack) --we will encourage patient to enter the [facility] in addition to his counseling with [facility] --we will encourage patient to more regular/frequent attendance at local A.A./ N.A. meetings, socialization with sober friends from program and his acquisition of a temporary sponsor at his first opportunity (request at next meeting attended) - Factors that would help patient function - in a less restrictive setting. Factors: --rapid resolution of suicidality/impulsivity --rapid response to restarting neuroleptic med --acceptance of referral to [facility] and increased involvement in local A.A./N.A.
--- NOTE | 2017-04-03 13:36 | NUR ---
PT IS LOUD, PACING THE UNIT AND YELLING THAT "I WANT TO GO HOME" & DEMANDING TO SEE A DOCTOR/HEEL STIFFENER. PT IS SOMEWHAT REDIRECTABLE. AT THIS POINT HE HAS BEEN TOLD THAT HE MOST LIEKLY IS NOT GOING HOME TODAY AND WHILE HE HAS ACCEPTED THIS, HE STILL IS DEMANDING TO SEE DOCTOR/HEEL STIFFENER. PT IS OUT IN THE COMMUNITY BUT NOT ATTENDING GROUPS-- RATHER, HE SITS OUTSIDE OF THEM. VS ARE STABLE AND DENEIS ANY SI/HI TO THIS MHW.
--- NOTE | 2017-04-03 14:41 | CP SOUTH PROGRESS NOTE PSYCH ---
Psych (Inpt) Progress Note Progress Note Include the following elements, when applicable: Involvement in the active treatment of the patient with behavioral observations of the patient and the patient's response to the treatment. Review of the ongoing treatment process in the context of the treatment plan. Indication of how multi-disciplinary staff members are carrying out the treatment plan. Plans for future interventions and recommendations for revision of the treatment plan. Liaison with other physicians/providers. Progress Note: PSYCHIATRIST NOTE, 04/03/2017: I discussed this patient's significant progress thus far, current mental status, treatment and discharge planning with staff team today in the daily morning PAUL and Rachel Richards LCSW, and I met with patient together in individual session. Patient continued to be pressured in speech, and it was difficult at times to get in a question or even a word; however, his speech was more organized. He denied any medication side effects or problems on current Seroquel dose of 600mg/day (changed from 800mg daily while he was in the E.D. 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 He expressed a desire to resume/ continue his outpatient treatment with [facility] in [facility], where he receives his methadone maintenance therapy, and to return to [facility] for weekly therapy and case management services. We discussed patient's multiple returns to hospital and how the need for these at such a frequency might be averted; patient described at least "30" admission in about as many years with possibly some tendency to increased frequency in recent years; patient attributes the latter to loss of his mother and other close relatives in 2014 ("I haven't been the same since then"). Patient does not need a primary anti-depressant medication at this time and given his history of bipolar (or schizoaffective) disorder should probably not be given one unless he is first "covered" by a primary mood stabilizer; the latter might also reduce he need for such a high dose of neuroleptic (600-800mg/day of Seroquel). Of course , continued polysubstance abuse, particularly of crack cocaine, makes any kind of more lasting stabilization in the community more difficult/less likely.
--- NOTE | 2017-04-03 15:55 | SOCIAL WORKER PROG NOTE PSYCH ---
Social Work Progress Note Progress Note Pt discussed ways to manage depression, "and becoming down and out", has a few friends and enjoys the commradarie of NA groups etc. Encouraged to find a sponsor, and to create buffers around times of year that may create more anxiety /depression. Encourage pt to find a healthy balance between recovery, being social and treating depression. Pt appears to have insight and willing to work towards decreasing number of hospital stays he has each year. If he can develop more coping skills and a healthy network of support he would have more options to tap into before it gets to be too "dark" for him. Pt agreed.
--- NOTE | 2017-04-03 20:11 | NUR ---
PT IS ISOLATIVE, SPEDNING LONG PERIODS OF TIME IN PT ROOM, SLEEPING. WHEN IN [place], PT INTERACTS WELL WITH OTHERS. MOOD IS STABLE, AFFECT IS EUTHYMIC TO FULL RANGE, COMMUNICATION IS ORGANIZED AND APPEARS NORMAL IN ALL RESPECTS, AND APPETITE IS NORMAL. PT DENIES SI AT TIS TIME.
--- NOTE | 2017-04-04 07:15 | NUR ---
PT NOT INTERESTED IN GROUPS, BUT IS TAKING MEDS ORDERED. PT UP X 1.
[2017-04-04 07:53] VITALS: BP 102/57
[2017-04-04 08:04] VITALS: BP 102/57
--- NOTE | 2017-04-04 08:27 | NUR ---
PT STATES HE WILL BE DISCHARGED TODAY AND HE STATES HIS MOOD IS GOOD AND CALM AND HE DENIES ANY THOUGHTS OF SUICIDE OR SELF HARM AT THIS TIME. HE STATES HIS FOLLOW UP TREATMENT IS WITH [facility]. HE VERBALIZES A GOOD UNDERSTANDING OF HIS MED REGIME AND TREATMENT PLAN. PT IS GIVEN EDUCATION R/T MANAGING HIS MOOD DISORDER AND ON SUIICDE PREVENTION
[2017-04-04 08:36] VITALS: BP 102/57
[2017-04-04] MEDS ORDERED: NICORELIEF2 MG PO (10:05)
[2017-04-04] MEDS ORDERED: METHADONE HCL10 M1 PO (10:40)
[2017-04-04] MEDS ORDERED: GABAPENTIN300 M2 PO (10:40)
[2017-04-04] MEDS ORDERED: QUETIAPINE FUM100 M1 PO (10:41)
--- NOTE | 2017-04-04 13:14 | SOCIAL WORKER PROG NOTE PSYCH ---
Social Work Progress Note Progress Note pt discharging today, denies si/hi/ah/vh. Pt will walk in to [facility] tomorrow on [address]. Pt is anxious, pacing and eager to return to his aprtment and the community.
--- NOTE | 2017-04-04 18:59 | CP SOUTH PROGRESS NOTE PSYCH ---
Psych (Inpt) Progress Note Progress Note Include the following elements, when applicable: Involvement in the active treatment of the patient with behavioral observations of the patient and the patient's response to the treatment. Review of the ongoing treatment process in the context of the treatment plan. Indication of how multi-disciplinary staff members are carrying out the treatment plan. Plans for future interventions and recommendations for revision of the treatment plan. Liaison with other physicians/providers. Progress Note: PSYCHIATRIST NOTE (DISCHARGE), 04/04/2017: I discussed this patient's progress to date, current mental status, treatment and discharge plans with staff team today in the daily morning ITTM and met with him again myself in individual session prior to discharging him back to [facility], for methadone maintenance and plans to enter the [facility]; he will also resume counseling at [facility]. I continued our discussion from yesterday, 2016, about the importance of his increasing participation in local N.A. meetings and, in particular to acquire at least a temporary sponsor at his earliest opportunity; patient was very much in agreement with adding these to his aftercare plan. Currently, patient is bright and cheerful in affect, joking good-naturedly, euthymic, future-oriented, showing no evidence of suicidal or homicidal ideation , plans intent or impulses and well aware of his safetly plan should he ever in future come to believe himself at acute risk of self-harm or harming others. (for complete list of all medications on the date of discharge see the Discharge Summary for this admission in the electronic medical record)
--- NOTE | 2017-04-04 19:03 | DISCHARGE SUMMARY REPORT-PSYCH ---
Visit Information Visit Dates/Diagnosis' Admission Date: 04/01/17 Discharge Date: 04/04/17 Reason for Admission: "I was going to 'eat' all my pills." Psy Discharge Primary Diag: Schizoaffective Disorder, Mixed, with psychotic features; MRE Mixed/Manic Cocaine Use Disorder, severe Cocaine Intoxication Hallucinogen Use Disorder (PCP), severe PCP Intoxication Sedative/Hypnotic/ Anxiolytic Use Disorder, Benzo. Intoxication Opioid Use Disorder; in full sustained remission on chronic methadone maintenance Psy Discharge Secondary Diag: Nicotine Use Disorder R/O chronic bronchitis contributed to by smoking R/O hx of alcohol withdrawal seizure (?over four years ago) chronic pain syndrome R/O BPH (benzodiazepines); moderately severe Hospital Course Significant Lab Findings: glucose = 103; BUN = 24; sodium = 135, chloride = 96; RBC = 4.30, HGB = 13.4, HCT = 40.2, monos 12.8% with 0.9 mono abs; INDRA = less than 10.0; urine for drugs of abuse--positive for benzodiazepines (greater than 800ng/ml), cocaine (greater than 1,000ng/ml), methadone (greater than 735ng/ml; Course Complications: none Consultations: patient was seen for an admission medical H&P and followed medically during this admission by Natanael Hernandez M.D. Allergies: Coded Allergies: benztropine (Intermediate, DELUSIONS 10/19/16) escitalopram (Intermediate, DELUSIONS 10/19/16) fluoxetine (Intermediate, DELUSIONS 10/19/16) haloperidol (Intermediate, DELUSIONS 10/19/16) chlorpromazine (Severe, MAKES ME CUT MYSELF 10/19/16) Hospital Course/TX Response: (see also, all initial/admission assessments and daily M.D./DUDE WRANGLER and TRACK REPAIR PERSON progress notes from this admission in the electronic medical record) Discharge HBIPS - Tobacco Use Treatment Offered Post DC Medications Offered: Script Given-See Med List Post DC Tobacco Treatment Plan: [facility]x Pgm - EtOH/Drug Use D/O Treatment Offered Post DC Medications Offered: Ref Med EtOH/Drug Use D/O Post DC EtOH/SubAbuse TX Plan: Other SubAbuse/Dual Pgm (walk-in intake at [facility] ) Metabolic Screening - Screen if on a Neuroleptic Medication - Metabolic screening should include: - Blood Pressure, BMI, Glucose or Hgb A1c, & a - Lipid profile from within the past 365 days. Metabolic Screening () Not Applicable, patient not on a neuroleptic. OR ([x]) Patient on a neuroleptic(s) . Enter below results for Glucose or Hemoglobin A1C, and lipid panel if obtained during the last 365 days. BMI: 20.600 Blood Pressure: 102/57 Laboratory Results (If applicable): [x] glucose = 103 (on 04/02/2017) glycos hgb A1c = 5.7 (on 10/23/2016) cholesterol = 122 (all drawn on ) triglycerides = 142 HDL = 35 LDL = 59 Discharge Instructions General Discharge Information Discharge Medications: patient told me he has an adequate supply at home to continue taking: Seroquel, 200mg 3x/day (clarify thinking/control racing thoughts/stabilize moods) Neurontin, 400mg 4x/day (for discomfort/chronic pain, anxiety, restlessness/ jitteriness) patient will continue to receive daily from [facility]: methadone, 110mg/day (to reduce cravings for other opioids, heroin/morphine in particular) (dose had been 90mg daily at time of most recent [facility] discharge in 10/2016-- receiving daily from [facility]) patient was encouraged to continue utilizing nicotine gum (or nicotine lozenges) OTC to help reduce cravings for tobacco/cigarettes and is aware that he should not smoke and use the gum/lozenges at the same time; he was also given an appointment card for the next [place] [facility] meeting scheduled for 04/10/2017 at 4pm, facilitated by Carole Napoles LCSW, and urged to try to attend one of these biweekly groups going forward patient is also taking and has sufficient supplies at home to contnue to take: Spiriva, 1 puff daily (for asthma control) Flomax, 0.4mg daily (for prostate health) Multiple Neuroleptics: ([X]) Not Applicable OR Document below three failed attempts at monotherapy, or a plan to taper to monotherapy, or augmentation of Clozapine. () Patient's Diet: heart healthy Patient's Activity: without restrictions DC Disposition: to home Recommendations: Following an interval of outpatient stabilization I would recommend attempting to begin a gradual taper down of current Seroquel dose (daily dose actually lowered from 800mg to 600mg/day during current admission). Referred To: We discharged patient back to [facility] on [facility], [place] for methadone maintenance and plans to enter the [facility]; he will also resume counseling at [facility]. I continued our discussion from yesterday, 04/03/2017, about the importance of his increasing participation in local [employer] meetings and, in particular to acquire at least a temporary sponsor at his earliest opportunity; patient was very much in agreement with adding these to his aftercare plan. Copies To: PAULINO BUTLER,SAMEER
== END 2017-04-04 14:17 | DRG 750 ==
LOC: ERH 15:12 → ERHI 04-01 12:20 → CP SOUTH 04-01 12:20 → ENTRNSPT 04-01 16:27 → CP SOUTH 04-01 17:21 → ENRESERV 04-01 23:59 → CMPTRNSPT 04-02 07:08 → CP SOUTH 04-04 14:17
PROVIDERS: Emergency Medicine; ADMIT Psychiatry & Neurology Psychiatry
DX: F25.0 Schizoaffective disorder, bipolar type (principal); F14.20 Cocaine dependence, uncomplicated; F16.20 Hallucinogen dependence, uncomplicated
CPT/HCPCS: 80307; 93005; 93010; G0463; G0480; J3490